=== PATIENT | female | born 1975 | race African-American/Black ===

== ENCOUNTER 2019-08-14 13:11 | Emergency (ER) | payer BC, OTHER ==
[~2019-08-14] VITALS: Ht 162.6 cm; Wt 95.3 kg
[2019-08-14] MEDS ORDERED: CLARITIN-D 121 EAC1 PO (14:04)
[2019-08-14] MEDS ORDERED: PROMETH-CODEIN 65 ML PO (14:04)
[2019-08-14 15:07] VITALS: BP 116/78
== END 2019-08-14 15:07 | disposition home or self-care (01) ==
LOC: ER 13:11
DX: J40 Bronchitis, not specified as acute or chronic (principal); Z91.040 Latex allergy status; Z91.013 Allergy to seafood; Z88.8 Allergy status to other drugs, medicaments and biological substances